=== PATIENT | male | born 2000 | race Two or more races ===

== ENCOUNTER 2025-04-22 22:32 | Emergency (ER) | payer MEDICAID, SELFPAY ==
[2025-04-22 22:34] VITALS: BMI 34.4
--- NOTE | 2025-04-22 23:18 | PC.NURSE ---
[facility] LOG NUMBER [id number]
[2025-04-22 23:24] VITALS: BP 137/90; PULSE 84; RESP 18; TEMP 36.6; O2SAT 98
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
== END 2025-04-23 02:45 | disposition home or self-care (01) ==
PROVIDERS: Emergency Provider Emergency Medicine; PCP Specialist
DX: S00.93XA Contusion of unspecified part of head, initial encounter (principal); S13.4XXA Sprain of ligaments of cervical spine, initial encounter; V89.2XXA Person injured in unspecified motor-vehicle accident, traffic, initial encounter; Y92.410 Unspecified street and highway as the place of occurrence of the external cause
CPT/HCPCS: 70450; 71045; 72125; 99283